=== PATIENT | female | born 1960 | race Caucasian/White ===

== ENCOUNTER 2018-09-22 11:45 | Outpatient (CLI) | payer BC | END 2018-09-22 23:59 | disposition home or self-care (01) | LOC: STAR 11:45 | PROVIDERS: ATTEND Orthopaedic Surgery | DX: Z01.818 Encounter for other preprocedural examination (principal); S83.241A Other tear of medial meniscus, current injury, right knee, initial encounter; X58.XXXA Exposure to other specified factors, initial encounter; Y93.89 Activity, other specified; Y92.89 Other specified places as the place of occurrence of the external cause; Y99.8 Other external cause status; Z79.899 Other long term (current) drug therapy | CPT/HCPCS: 36415; 83036; 85610; 85730; 87081; 87806; G0475 ==

== ENCOUNTER 2018-10-01 08:19 | Observation (INO) | payer BC ==
[~2018-10-01] VITALS: Ht 170.2 cm; Wt 103.0 kg
[~2018-10-01 08:19] MED LIST: BISACODYL 10 MG SUPP PR PRN; DIPHENHYDRAMINE 50 MG CAPSULE PO PRN; EPINEPHRINE 1 MG/ML, 1ML ONE; HYDROcodone/APAP 5/325 TABLET PO PRN; HYDROmorphone 1 MG/ML, 1ML INJ IV PRN; KETOROLAC 60 MG/2 ML ONE; MAGNESIUM HYDROXIDE 8%, 30ML UDC PO PRN; ONDANSETRON 2MG/ML, 2ML IV PRN; ONDANSETRON ODT 4 MG PO PRN; PLEASE ENTER ALLERGIES MC SCH; PLEASE ENTER HEIGHT AND WEIGHT MC SCH; SCOPOLAMINE PATCH, 1.5MG PATCH.TD72 TD ONE; SENNA/DOCUSATE TABLET PO PRN; TRANEXAMIC ACID 100 MG/ML, 10ML ONE; VANCOMYCIN 1,000 MG ONE; ZOLPIDEM 5MG TABLET PO PRN
[2018-10-01] MEDS ORDERED: ROPIvacaine/PF 0.5%, 20 ML ONE (08:27)
[2018-10-01] MEDS ORDERED: FENTANYL PF 250 MCG/5ML ONE ×2 (08:33→10:57)
[2018-10-01] MEDS ORDERED: MIDAZOLAM 1 MG/ML, 2ML ONE (08:33)
[2018-10-01] MEDS ORDERED: LIDOCAINE-MPF 2% ,5ML ONE (08:36)
[2018-10-01 08:50] VITALS: BP 137/81
[2018-10-01] MEDS: DOCUSATE 100 MG CAPSULE PO SCH ×2 (09:00→21:37)
[2018-10-01] MEDS ORDERED: ASPI-496 PO (09:02)
[2018-10-01] MEDS ORDERED: LOSA100T14 PO (09:02)
[2018-10-01] MEDS ORDERED: SPIR25TA5 PO (09:02)
[2018-10-01] MEDS ORDERED: BUPIVACAINE/PF 0.25% ONE (09:03)
[2018-10-01] MEDS ORDERED: LACTATED RINGERS 1,000 ML IV SCH (09:12)
[2018-10-01] MEDS ORDERED: GABAPENTIN 300 MG CAPSULE PO ONE (09:30)
[2018-10-01] MEDS ORDERED: ACETAMINOPHEN 500 MG TABLET ONE (09:48)
[2018-10-01] MEDS ORDERED: ACETAMINOPHEN 500 MG TABLET PO ONE (10:00)
[2018-10-01] MEDS ORDERED: DEXAMETHASONE 4 MG/ML, 1ML ONE (10:27)
[2018-10-01] MEDS ORDERED: ONDANSETRON 2MG/ML, 2ML ONE (10:27)
[2018-10-01] MEDS ORDERED: CEFAZOLIN 1,000 MG ONE (10:27)
[2018-10-01] MEDS ORDERED: PROPOFOL 10 MG/ML, 20ML ONE (10:27)
[2018-10-01] MEDS ORDERED: PROMETHAZINE 25 MG SUPP PR PRN (10:30)
[2018-10-01] MEDS ORDERED: ONDANSETRON ODT 8 MG PO PRN (10:30)
[2018-10-01] MEDS ORDERED: PROMETHAZINE 25 MG/ML, 1ML IV PRN (10:30)
[2018-10-01] MEDS ORDERED: DIAZEPAM 5 MG/ML, 2ML IVPush PRN (10:30)
[2018-10-01] MEDS ORDERED: OXYcodone 5 MG/5 ML ORAL.SOL UDC PO PRN (10:30)
[2018-10-01] MEDS ORDERED: hydrALAzine 20 MG/ML, 1ML IV PRN (10:30)
[2018-10-01] MEDS ORDERED: HYDROmorphone 2 MG/ML, 1ML IVPush PRN (10:30)
[2018-10-01] MEDS ORDERED: LABETALOL 5MG/ML, 20ML IV PRN (10:30)
[2018-10-01] MEDS ORDERED: ONDANSETRON 2MG/ML, 2ML IV PRN (10:30)
[2018-10-01] MEDS ORDERED: LORazepam 2 MG/ML, 1ML IVPush PRN (10:30)
[2018-10-01] MEDS ORDERED: hydrALAzine 20 MG/ML, 1ML ONE (11:37)
[2018-10-01] MEDS ORDERED: FENTANYL PF 100 MCG/2ML ONE (12:11)
[2018-10-01] MEDS: FENTANYL PF 100 MCG/2ML IV PRN ×3 (12:15→12:35)
[2018-10-01] MEDS ORDERED: HYDROmorphone 2 MG/ML, 1ML ONE ×2 (12:35→17:35)
[2018-10-01] MEDS ORDERED: DIPHENHYDRAMINE 25 MG CAPSULE ONE (13:09)
[2018-10-01 13:30] VITALS: BP 116/66
[2018-10-01] MEDS: NS + 20MEQ KCL 1,000 ML IV SCH (14:08)
[2018-10-01] MEDS: OXYcodone IR 5MG TABLET PO PRN ×2 (16:06→21:36)
[2018-10-01] MEDS: CEFAZOLIN PMX 2GM/50ML 50 ML IVPB SCH (16:33)
[2018-10-01] MEDS: ASPIRIN 81 MG TABLET EC PO SCH (17:40)
[2018-10-01 20:33] VITALS: BP 104/58
[2018-10-02 00:14] VITALS: BP 94/45
[2018-10-02] MEDS: CEFAZOLIN PMX 2GM/50ML 50 ML IVPB SCH (00:19)
[2018-10-02] MEDS: OXYcodone IR 5MG TABLET PO PRN ×3 (01:31→09:35)
[2018-10-02] MEDS: ACETAMINOPHEN 650 MG/20.3 ML UDC PO PRN ×3 (01:31→09:35)
[2018-10-02 01:33] VITALS: BP 104/54
[2018-10-02] MEDS: NS + 20MEQ KCL 1,000 ML IV SCH ×2 (03:25→08:19)
[2018-10-02 05:24] VITALS: BP 118/52
[2018-10-02] MEDS ORDERED: DEXAMETHASONE 4 MG/ML, 1ML IVPush SCH (06:00)
[2018-10-02] MEDS: ASPIRIN 81 MG TABLET EC PO SCH (06:08)
[2018-10-02] MEDS: DOCUSATE 100 MG CAPSULE PO SCH (08:18)
[2018-10-02] MEDS ORDERED: MELO7.5T31 PO (09:19)
[2018-10-02] MEDS ORDERED: OXYC5CAP2 PO (09:20)
[2018-10-02] MEDS ORDERED: TRAM50TA2 PO (09:21)
[2018-10-02 09:30] VITALS: BP 120/58
== END 2018-10-02 12:25 | disposition home or self-care (01) ==
LOC: OUT 08:19 → 4NOR 13:16 → OUT 23:00 → DCLOUNGE 10-02 12:17
PROVIDERS: ADMIT Orthopaedic Surgery; ATTEND Orthopaedic Surgery
DX: M17.11 Unilateral primary osteoarthritis, right knee (principal); I10 Essential (primary) hypertension; Z79.82 Long term (current) use of aspirin; Z79.899 Other long term (current) drug therapy
CPT/HCPCS: 27447; 36415; 85014; 85018; 96365; 96366; 96375; 97161; 97166; 97530; C1713; C1776; G0378; J0171; J0360; J0690; J1100; J1170; J1885; J2250; J2405; J2704; J2795; J3010; J3370; J3480; J3490; J7120